=== PATIENT | male | born 1995 | race African-American/Black ===

== ENCOUNTER 2023-04-13 02:51 | Emergency (ER) | payer SELFPAY ==
[~2023-04-13] VITALS: Ht 177.8 cm; Wt 86.4 kg
[2023-04-13] MEDS ORDERED: IPRATROPIUM BROM 0.5 MG/2.5ML INH SOL NEB ONE (04:00)
[2023-04-13] MEDS ORDERED: ALBUTEROL SULF 2.5 MG/0.5ML(0.5%) NEB SOLN NEB ONE (04:00)
[2023-04-13] MEDS ORDERED: ALBUTEROL MEDNEB 2.5 mg/3ml NEB ONE (04:20)
[2023-04-13 08:12] VITALS: BP 144/85; PULSE 60; RESP 16; TEMP 98.4; O2SAT 95
== END 2023-04-13 08:44 | disposition left against medical advice (07) ==
LOC: ER 02:55
DX: J45.901 Unspecified asthma with (acute) exacerbation (principal); Z53.21 Procedure and treatment not carried out due to patient leaving prior to being seen by health care provider
CPT/HCPCS: 94640; 99281; J7644

== ENCOUNTER 2023-04-14 02:25 | Emergency (ER) | payer SELFPAY ==
[~2023-04-14] VITALS: Ht 175.3 cm; Wt 90.0 kg
[2023-04-14 02:42] VITALS: BP 148/99
[2023-04-14 02:46] VITALS: PULSE 57
[2023-04-14 04:30] VITALS: RESP 16; O2SAT 98
== END 2023-04-14 04:33 | disposition home or self-care (01) ==
LOC: ER 02:25 → EDBD 02:25 → ER 04:33
DX: T69.9XXA Effect of reduced temperature, unspecified, initial encounter (principal); J45.909 Unspecified asthma, uncomplicated; Z59.00 Homelessness unspecified
CPT/HCPCS: 93005

== ENCOUNTER 2023-04-17 01:24 | Emergency (ER) | payer SELFPAY ==
[~2023-04-17] VITALS: Ht 177.8 cm; Wt 86.0 kg
[2023-04-17] MEDS ORDERED: ALBUTEROL SULF 2.5 MG/0.5ML(0.5%) NEB SOLN NEB ONE (02:15)
[2023-04-17] MEDS ORDERED: DexAMETHasone SOD PHOS 10MG/1ML VIAL INJ IM ONE (02:15)
[2023-04-17] MEDS ORDERED: IPRATROPIUM BROM 0.5 MG/2.5ML INH SOL NEB ONE (02:15)
[2023-04-17] MEDS ORDERED: ALBUTEROL MEDNEB 2.5 mg/3ml NEB ONE (02:17)
[2023-04-17] MEDS ORDERED: BUDE2SUS3 IN (02:18)
[2023-04-17] MEDS ORDERED: ALBUAER3 IN (02:18)
[2023-04-17] MEDS ORDERED: PRED20TA2 PO (02:18)
[2023-04-17 05:01] VITALS: BP 134/77; PULSE 61; RESP 18; TEMP 98.5; O2SAT 96
[2023-04-18] MEDS ORDERED: BUDE2SUS3 IN (07:16)
== END 2023-04-17 05:13 | disposition home or self-care (01) ==
LOC: ER 01:24
DX: J45.909 Unspecified asthma, uncomplicated (principal); Z76.0 Encounter for issue of repeat prescription
CPT/HCPCS: 94640; 99283; J7644

== ENCOUNTER 2023-04-18 06:23 | Emergency (ER) | payer SELFPAY ==
[~2023-04-18] VITALS: Ht 177.8 cm; Wt 92.8 kg
[~2023-04-18 06:23] MED LIST: ALBUAER3 IN; BUDE2SUS3 IN; PRED20TA2 PO
[2023-04-18 07:01] VITALS: BP 122/75; PULSE 64; RESP 16; TEMP 98; O2SAT 96
[2023-04-18] MEDS ORDERED: BUDE2SUS3 IN (07:16)
[2023-04-19] MEDS ORDERED: IBUP-1454 PO (04:12)
[2023-04-19] MEDS ORDERED: CYCL-611 PO (04:12)
== END 2023-04-18 07:30 | disposition home or self-care (01) ==
LOC: ER 06:23
DX: Z76.0 Encounter for issue of repeat prescription (principal)

== ENCOUNTER 2023-04-19 01:22 | Emergency (ER) | payer SELFPAY ==
[~2023-04-19] VITALS: Ht 177.8 cm; Wt 92.0 kg
[2023-04-19 02:29] VITALS: BP 118/78; PULSE 86; RESP 18; TEMP 97.2; O2SAT 96
[2023-04-19] MEDS ORDERED: DexAMETHasone SOD PHOS 10MG/1ML VIAL INJ IM ONE (04:00)
[2023-04-19] MEDS ORDERED: HYDROcodone-ACET 5/325MG TAB PO ONE (04:00)
[2023-04-19] MEDS ORDERED: IBUP-1454 PO (04:12)
[2023-04-19] MEDS ORDERED: CYCL-611 PO (04:12)
== END 2023-04-19 05:25 | disposition home or self-care (01) ==
LOC: ER 01:22
DX: M51.36 Other intervertebral disc degeneration, lumbar region (principal); M54.59 Other low back pain; J45.909 Unspecified asthma, uncomplicated; Z79.899 Other long term (current) drug therapy
CPT/HCPCS: 72100; 72131; 99284; J1100

== ENCOUNTER 2023-04-20 01:48 | Emergency (ER) | payer SELFPAY ==
[~2023-04-20] VITALS: Ht 177.8 cm; Wt 92.2 kg
[~2023-04-20 01:48] MED LIST changes: +CYCL-611 PO; +IBUP-1454 PO
[2023-04-20 03:24] VITALS: BP 125/79; PULSE 68; RESP 16; O2SAT 98
== END 2023-04-20 03:26 | disposition home or self-care (01) ==
LOC: ER 01:48
DX: G25.3 Myoclonus (principal); J45.909 Unspecified asthma, uncomplicated; Z79.899 Other long term (current) drug therapy

== ENCOUNTER 2023-04-22 17:26 | Emergency (ER) | payer SELFPAY ==
[~2023-04-22] VITALS: Ht 177.8 cm; Wt 86.4 kg
[2023-04-22] MEDS ORDERED: IPRATROPIUM BROM 0.5 MG/2.5ML INH SOL NEB ONE (18:30)
[2023-04-22] MEDS ORDERED: ALBUTEROL SULF 2.5 MG/0.5ML(0.5%) NEB SOLN NEB ONE (18:30)
[2023-04-22] MEDS ORDERED: methylPREDNISolone SOD SUCC 125 MG/2 ML VL IM ONE (18:30)
[2023-04-22] MEDS ORDERED: ALBUTEROL MEDNEB 2.5 mg/3ml NEB ONE (18:34)
[2023-04-22] MEDS ORDERED: methylPREDNISolone SOD SUCC 125 MG/2 ML VL IV ONE (20:15)
[2023-04-22 21:12] LABS: Basophils # (auto) 0.1 10 ^3/uL (0-0.2); Basophils % (auto) 0.8 % (0.0-2.0); Eosinophils # (auto) 0.4 10 ^3/uL (0-0.8); Eosinophils % (auto) 4.8 % (0.0-7.0); Hematocrit 49.5 % (41.0-53.0); Hemoglobin 16.5 g/dL (13.5-17.5); Lymphocytes # (auto) 1.3 10 ^3/uL (0.4-5.4); Lymphocytes % (auto) 15.7 % (10.0-50.0); Mean Corpuscular Hemoglobin 29.9 pg (28.0-32.0); Mean Corpuscular Hgb Conc. 33.3 g/dL (32.0-36.0); Mean Corpuscular Volume 89.8 fL (80.0-100.0); Monocytes # (auto) 0.8 10 ^3/uL (0-1.3); Monocytes % (auto) 9.8 % (0.0-12.0); Neutrophils # (auto) 5.7 10 ^3/uL (1.6-8.6); Neutrophils % (auto) 68.9 % (37.0-80.0); Nucleated Red Blood Cells % 0.1 %; Red Blood Cells 5.51 10^6/uL (4.5-5.90); Red Cell Distribution Width 13.5 % (11.8-14.3); White Blood Cell 8.3 10^3/uL (4.4-10.8)
[2023-04-22 21:45] LABS: Alanine Aminotransferase 18 U/L (7-40); Alkaline Phosphatase 68 U/L (46-116); Anion Gap 10 (5-15); Aspartate Aminotransferase 15 U/L (13-40); BUN/Creatinine Ratio 6.1 (10.0-20.0); Blood Urea Nitrogen 7 mg/dL (9-23); Calcium 9.5 mg/dL (8.5-10.1); Carbon Dioxide 24 mmol/L (20-30); Chloride 106 mmol/L (98-107); Glucose 132 mg/dL (74-106); Potassium 3.5 mmol/L (3.5-5.1); Sodium 140 mmol/L (136-145)
[2023-04-22 21:46] LABS: Albumin 4.7 g/dL (3.2-4.8); Bilirubin, Total 0.4 mg/dL (0.2-1.0); Total Protein 7.3 g/dL (5.7-8.2)
[2023-04-23 00:10] VITALS: BP 102/62; RESP 18; O2SAT 97
[2023-04-23] MEDS ORDERED: ALBUAER3 IN (00:15)
[2023-04-23] MEDS ORDERED: AZITTAB PO (00:15)
[2023-04-23] MEDS ORDERED: MONT10TA23 PO (00:15)
[2023-04-23] MEDS ORDERED: PRED20TA2 PO ×2 (00:15→12:11)
[2023-04-23 00:22] VITALS: PULSE 107
== END 2023-04-23 00:36 | disposition home or self-care (01) ==
LOC: EDBD 17:26 → ER 17:26
DX: R07.89 Other chest pain (principal); J45.909 Unspecified asthma, uncomplicated
CPT/HCPCS: 36415; 71045; 80053; 83880; 84484; 85025; 93005; 94640; 96374; 99285; J2930; J7644

== ENCOUNTER 2023-04-23 10:59 | Emergency (ER) | payer SELFPAY ==
[~2023-04-23] VITALS: Ht 177.8 cm; Wt 88.3 kg
[2023-04-23 11:02] VITALS: BP 122/73; PULSE 85; TEMP 98
[2023-04-23 11:15] VITALS: RESP 16; O2SAT 95
[2023-04-23] MEDS ORDERED: PRED20TA2 PO (12:11)
[2023-04-23] MEDS ORDERED: methylPREDNISolone SOD SUCC 125 MG/2 ML VL IM ONE (12:15)
== END 2023-04-23 12:19 | disposition home or self-care (01) ==
LOC: ER 10:59
DX: J45.909 Unspecified asthma, uncomplicated (principal)
CPT/HCPCS: 96372; 99283; J2930

== ENCOUNTER → 2023-04-23 | Emergency (ER) | payer SELFPAY ==
[~2023-04-23] VITALS: Ht 175.3 cm; Wt 84.0 kg
[~2023-04-23] MED LIST changes: +AZITTAB PO; +MONT10TA23 PO
[2023-04-23 02:31] VITALS: BP 136/72; PULSE 88; RESP 22; O2SAT 97
== END | disposition left against medical advice (07) ==
LOC: EDUNIT# 02:13 → EDBD 02:18 → ER 02:18
DX: J45.909 Unspecified asthma, uncomplicated (principal); Z53.21 Procedure and treatment not carried out due to patient leaving prior to being seen by health care provider

== ENCOUNTER 2023-04-26 23:43 | Emergency (ER) | payer SELFPAY ==
[~2023-04-26] VITALS: Ht 177.8 cm; Wt 86.0 kg
[2023-04-27] MEDS ORDERED: IPRATROPIUM BROM 0.5 MG/2.5ML INH SOL NEB ONE (00:30)
[2023-04-27] MEDS ORDERED: ALBUTEROL SULF 2.5 MG/0.5ML(0.5%) NEB SOLN NEB ONE (00:30)
[2023-04-27] MEDS ORDERED: ALBUTEROL MEDNEB 2.5 mg/3ml NEB ONE (01:12)
[2023-04-27 04:58] VITALS: BP 123/72; PULSE 95; RESP 18; TEMP 98; O2SAT 96
[2023-04-27] MEDS ORDERED: PRED20TA2 PO (05:25)
[2023-04-27] MEDS ORDERED: ALBUAER3 IN (05:25)
[2023-04-27] MEDS ORDERED: DexAMETHasone SOD PHOS 10MG/1ML VIAL INJ IM ONE (05:30)
== END 2023-04-27 05:38 | disposition home or self-care (01) ==
LOC: ER 23:43
DX: J45.901 Unspecified asthma with (acute) exacerbation (principal); Z59.00 Homelessness unspecified
CPT/HCPCS: 94640; 99283; J1100; J7644

== ENCOUNTER 2023-04-27 14:01 | Emergency (ER) | payer SELFPAY ==
[~2023-04-27] VITALS: Ht 177.8 cm; Wt 92.1 kg
[2023-04-27 14:20] VITALS: BP 111/63; PULSE 97; RESP 18; O2SAT 100
[2023-04-27 15:48] LABS: Urine WBC None Seen /hpf (0 - 3)
[2023-04-27 16:23] LABS: Urine Amorphous Crystal MOD /hpf (None Seen); Urine Bacteria NONE SEEN /hpf (None Seen); Urine Blood Negative /uL (Negative); Urine Clarity HAZY (Clear); Urine Color Yellow (Yellow); Urine Mucus FEW (None Seen); Urine Protein, UAD TRACE (Negative); Urine Specific Gravity 1.033 (1.001-1.035); Urine pH 7.5 (5.0-8.0)
== END 2023-04-27 20:09 | disposition left against medical advice (07) ==
LOC: ER 14:01
DX: R11.0 Nausea (principal); Z53.21 Procedure and treatment not carried out due to patient leaving prior to being seen by health care provider
CPT/HCPCS: 74176; 81001

== ENCOUNTER 2023-04-28 17:42 | Emergency (ER) | payer SELFPAY ==
[~2023-04-28] VITALS: Ht 177.8 cm; Wt 91.4 kg
[2023-04-28 18:22] VITALS: BP 127/83; PULSE 79; RESP 18; O2SAT 98
[2023-04-28] MEDS ORDERED: ONDANSETRON HCL 4 MG/2 ML VIAL IV ONE (19:30)
[2023-04-28] MEDS ORDERED: SODIUM CHLORIDE 0.9% 1,000 ML IV ONE (19:30)
[2023-04-28 20:32] LABS: Basophils # (auto) 0.1 10 ^3/uL (0-0.2); Basophils % (auto) 1.5 % (0.0-2.0); Eosinophils # (auto) 0.5 10 ^3/uL (0-0.8); Eosinophils % (auto) 6.3 % (0.0-7.0); Hematocrit 47.8 % (41.0-53.0); Lymphocytes # (auto) 4.2 10 ^3/uL (0.4-5.4); Lymphocytes % (auto) 49.9 % (10.0-50.0); Mean Corpuscular Hemoglobin 29.8 pg (28.0-32.0); Mean Corpuscular Hgb Conc. 33.5 g/dL (32.0-36.0); Mean Corpuscular Volume 88.8 fL (80.0-100.0); Monocytes # (auto) 0.7 10 ^3/uL (0-1.3); Monocytes % (auto) 7.9 % (0.0-12.0); Neutrophils # (auto) 2.9 10 ^3/uL (1.6-8.6); Neutrophils % (auto) 34.4 % (37.0-80.0); Nucleated Red Blood Cells % 0.1 %; Red Blood Cells 5.38 10^6/uL (4.5-5.90); White Blood Cell 8.3 10^3/uL (4.4-10.8)
[2023-04-28 20:47] LABS: Alanine Aminotransferase 17 U/L (7-40); Albumin 4.4 g/dL (3.2-4.8); Alkaline Phosphatase 73 U/L (46-116); Anion Gap 6 (5-15); Aspartate Aminotransferase 14 U/L (13-40); BUN/Creatinine Ratio 8.9 (10.0-20.0); Bilirubin, Total 0.3 mg/dL (0.2-1.0); Blood Urea Nitrogen 9 mg/dL (9-23); Calcium 9.1 mg/dL (8.5-10.1); Carbon Dioxide 28 mmol/L (20-30); Chloride 107 mmol/L (98-107); Glucose 102 mg/dL (74-106); Potassium 3.5 mmol/L (3.5-5.1); Sodium 141 mmol/L (136-145); Total Protein 6.6 g/dL (5.7-8.2)
== END 2023-04-28 23:23 | disposition left against medical advice (07) ==
LOC: ER 17:42
DX: T69.9XXA Effect of reduced temperature, unspecified, initial encounter (principal); R11.2 Nausea with vomiting, unspecified; J45.909 Unspecified asthma, uncomplicated; X58.XXXA Exposure to other specified factors, initial encounter; Y93.89 Activity, other specified; Y92.89 Other specified places as the place of occurrence of the external cause; Y99.8 Other external cause status
CPT/HCPCS: 36415; 80053; 85025

== ENCOUNTER 2023-05-05 00:48 | Emergency (ER) | payer SELFPAY ==
[~2023-05-05] VITALS: Ht 177.8 cm; Wt 94.7 kg
[2023-05-05 01:04] VITALS: BP 134/79; PULSE 70; RESP 16; TEMP 97.9
[2023-05-05] MEDS ORDERED: diphenhdrAMINE HCL 25 MG CAP PO ONE (03:00)
[2023-05-05] MEDS ORDERED: ONDANSETRON ODT 4 MG TAB PO ONE (03:00)
[2023-05-05 05:42] VITALS: O2SAT 97
== END 2023-05-05 05:57 | disposition home or self-care (01) ==
LOC: ER 00:48
DX: T78.40XA Allergy, unspecified, initial encounter (principal); R11.2 Nausea with vomiting, unspecified; J45.909 Unspecified asthma, uncomplicated; Z59.00 Homelessness unspecified; X58.XXXA Exposure to other specified factors, initial encounter
CPT/HCPCS: 99283; Q0162

== ENCOUNTER 2023-05-09 21:01 | Emergency (ER) | payer SELFPAY | END 2023-05-09 22:00 | disposition left against medical advice (07) | LOC: ER 21:01 | DX: R05.9 Cough, unspecified (principal); Z53.21 Procedure and treatment not carried out due to patient leaving prior to being seen by health care provider ==

== ENCOUNTER 2023-05-13 22:40 | Emergency (ER) | payer SELFPAY ==
[~2023-05-13] VITALS: Ht 177.8 cm; Wt 86.4 kg
[2023-05-13 23:05] VITALS: BP 113/71; PULSE 79; RESP 17; O2SAT 98
[2023-05-13] MEDS ORDERED: ALBUTEROL MEDNEB 2.5 mg/3ml NEB NEB ONE (23:15)
[2023-05-13] MEDS ORDERED: IPRATROPIUM BROM 0.5 MG/2.5ML INH SOL NEB ONE (23:15)
[2023-05-15] MEDS ORDERED: PRED20TA2 PO (00:28)
[2023-05-15] MEDS ORDERED: AMOX875T4 PO (00:28)
[2023-05-15] MEDS ORDERED: ZOFR4T PO (00:28)
== END 2023-05-14 01:13 | disposition left against medical advice (07) ==
LOC: ER 22:40
DX: J45.901 Unspecified asthma with (acute) exacerbation (principal); Z53.21 Procedure and treatment not carried out due to patient leaving prior to being seen by health care provider
CPT/HCPCS: 99281; J7644

== ENCOUNTER 2023-05-14 20:51 | Emergency (ER) | payer SELFPAY ==
[~2023-05-14] VITALS: Ht 177.8 cm; Wt 85.0 kg
[2023-05-14 20:57] VITALS: BP 123/81; RESP 16; O2SAT 100
[2023-05-15] MEDS ORDERED: PRED20TA2 PO (00:28)
[2023-05-15] MEDS ORDERED: AMOX875T4 PO (00:28)
[2023-05-15] MEDS ORDERED: ZOFR4T PO (00:28)
[2023-05-15] MEDS ORDERED: methylPREDNISolone SOD SUCC 125 MG/2 ML VL IM ONE (00:30)
[2023-05-15 01:24] LABS: COVID19 ANTIGEN SOFIA FIA NEGATIVE (NEGATIVE); Rapid Influenza A Negative (Negative); Rapid Influenza B Negative (Negative)
[2023-05-15 02:08] VITALS: PULSE 67
== END 2023-05-15 01:12 | disposition home or self-care (01) ==
LOC: ER 20:51 → EDBD 20:51 → ER 05-15 01:12
DX: J06.9 Acute upper respiratory infection, unspecified (principal); J45.909 Unspecified asthma, uncomplicated; Z79.899 Other long term (current) drug therapy; Z20.822 Contact with and (suspected) exposure to COVID-19
CPT/HCPCS: 36415; 71045; 87426; 87804; 93005

== ENCOUNTER 2023-05-24 17:53 | Emergency (ER) | payer SELFPAY ==
[~2023-05-24] VITALS: Ht 177.8 cm; Wt 86.3 kg
[~2023-05-24 17:53] MED LIST changes: +AMOX875T4 PO; +ZOFR4T PO
[2023-05-24 19:06] VITALS: BP 134/78; PULSE 86; RESP 18; TEMP 98.2; O2SAT 99
[2023-05-24] MEDS ORDERED: ACETAMINOPHEN 500 MG TAB PO ONE (19:45)
== END 2023-05-24 21:04 | disposition home or self-care (01) ==
LOC: ER 17:53 → EDBD 17:53 → ER 21:01
DX: M79.604 Pain in right leg (principal); M79.605 Pain in left leg; J45.909 Unspecified asthma, uncomplicated; Z79.899 Other long term (current) drug therapy

== ENCOUNTER 2023-05-25 14:13 | Emergency (ER) | payer SELFPAY ==
[~2023-05-25] VITALS: Ht 177.8 cm; Wt 85.0 kg
[2023-05-25 14:30] VITALS: BP 110/71; PULSE 97; RESP 20; O2SAT 96
[2023-05-25] MEDS ORDERED: SODIUM CHLORIDE 0.9% 1,000 ML IVB ONE (15:15)
[2023-05-25 16:04] LABS: Basophils # (auto) 0.1 10 ^3/uL (0-0.2); Basophils % (auto) 1.2 % (0.0-2.0); Eosinophils # (auto) 0.2 10 ^3/uL (0-0.8); Eosinophils % (auto) 3.3 % (0.0-7.0); Hematocrit 44.5 % (41.0-53.0); Hemoglobin 15.1 g/dL (13.5-17.5); Lymphocytes # (auto) 1.8 10 ^3/uL (0.4-5.4); Mean Corpuscular Hgb Conc. 33.9 g/dL (32.0-36.0); Mean Corpuscular Volume 88.4 fL (80.0-100.0); Monocytes % (auto) 13.5 % (0.0-12.0); Neutrophils # (auto) 4.2 10 ^3/uL (1.6-8.6); Nucleated Red Blood Cells % 0.1 %; Red Blood Cells 5.04 10^6/uL (4.5-5.90); Red Cell Distribution Width 13.5 % (11.8-14.3); White Blood Cell 7.4 10^3/uL (4.4-10.8)
[2023-05-25 16:16] LABS: Alanine Aminotransferase 15 U/L (7-40); Albumin 4.4 g/dL (3.2-4.8); Alkaline Phosphatase 68 U/L (46-116); Anion Gap 4 (5-15); Aspartate Aminotransferase 12 U/L (13-40); Bilirubin, Total 0.6 mg/dL (0.2-1.0); Blood Alcohol < 3.0 mg/dL (<10); Blood Urea Nitrogen 5 mg/dL (9-23); Calcium 9.7 mg/dL (8.5-10.1); Carbon Dioxide 29 mmol/L (20-30); Chloride 105 mmol/L (98-107); Glucose 87 mg/dL (74-106); Potassium 3.8 mmol/L (3.5-5.1); Sodium 138 mmol/L (136-145); Total Protein 6.8 g/dL (5.7-8.2)
== END 2023-05-25 21:41 | disposition home or self-care (01) ==
LOC: EDBD 14:13 → ER 14:13
DX: R53.1 Weakness (principal); R51.9 Headache, unspecified; J45.909 Unspecified asthma, uncomplicated; F20.9 Schizophrenia, unspecified; F17.210 Nicotine dependence, cigarettes, uncomplicated; Z79.899 Other long term (current) drug therapy
CPT/HCPCS: 36415; 70450; 80053; 80320; 85025

== ENCOUNTER 2023-05-28 22:17 | Emergency (ER) | payer SELFPAY ==
[~2023-05-28] VITALS: Ht 177.8 cm; Wt 84.1 kg
[2023-05-29] MEDS ORDERED: ACETAMINOPHEN 325 MG TAB PO ONE (01:15)
[2023-05-29 01:40] VITALS: PULSE 80; RESP 12; O2SAT 97
[2023-05-29 02:01] LABS: Basophils # (auto) 0.1 10 ^3/uL (0-0.2); Basophils % (auto) 1.2 % (0.0-2.0); Eosinophils # (auto) 0.2 10 ^3/uL (0-0.8); Eosinophils % (auto) 2.8 % (0.0-7.0); Hematocrit 44.2 % (41.0-53.0); Hemoglobin 14.7 g/dL (13.5-17.5); Lymphocytes # (auto) 3.2 10 ^3/uL (0.4-5.4); Lymphocytes % (auto) 38.5 % (10.0-50.0); Mean Corpuscular Hemoglobin 29.6 pg (28.0-32.0); Mean Corpuscular Hgb Conc. 33.3 g/dL (32.0-36.0); Mean Corpuscular Volume 88.7 fL (80.0-100.0); Monocytes # (auto) 0.9 10 ^3/uL (0-1.3); Monocytes % (auto) 10.6 % (0.0-12.0); Neutrophils # (auto) 3.9 10 ^3/uL (1.6-8.6); Neutrophils % (auto) 46.9 % (37.0-80.0); Nucleated Red Blood Cells % 0.1 %; Red Blood Cells 4.98 10^6/uL (4.5-5.90); Red Cell Distribution Width 13.6 % (11.8-14.3); White Blood Cell 8.3 10^3/uL (4.4-10.8)
[2023-05-29 02:21] LABS: Alanine Aminotransferase 12 U/L (7-40); Albumin 4.3 g/dL (3.2-4.8); Alkaline Phosphatase 66 U/L (46-116); Anion Gap 6 (5-15); Aspartate Aminotransferase 14 U/L (13-40); Blood Alcohol 4.3 mg/dL (<10); Calcium 8.9 mg/dL (8.7-10.4); Carbon Dioxide 27 mmol/L (20-30); Chloride 107 mmol/L (98-107); Glucose 95 mg/dL (74-106); Potassium 3.6 mmol/L (3.5-5.1); Sodium 140 mmol/L (136-145)
[2023-05-29 02:22] LABS: BUN/Creatinine Ratio 8.1 (10.0-20.0); Bilirubin, Total 0.5 mg/dL (0.2-1.0); Blood Urea Nitrogen 9 mg/dL (9-23); Total Protein 6.7 g/dL (5.7-8.2)
[2023-05-29 02:35] LABS: Amphetamine Screen, Urine Neg (NEGATIVE)
[2023-05-29 02:36] LABS: Barbiturate Scree,Urine Neg (NEGATIVE); Benzodiazephine Screen, Urine Neg (NEGATIVE); Cannabinoid Screen, Urine Pos (NEGATIVE); Cocaine Screen, Urine Neg (NEGATIVE); Opiate Scree,Urine Neg (NEGATIVE); Phencyclidine Screen, Urine Neg (NEGATIVE)
[2023-05-29 02:40] LABS: Urine Bacteria NONE SEEN /hpf (None Seen); Urine Blood Negative /uL (Negative); Urine Clarity Clear (Clear); Urine Color Yellow (Yellow); Urine Protein, UAD Negative (Negative); Urine Specific Gravity 1.019 (1.001-1.035); Urine Urobilinogen Normal (Negative); Urine WBC <1 /hpf (0 - 3)
[2023-05-29 03:30] VITALS: BP 130/72; PULSE 67; RESP 16; TEMP 97.8; O2SAT 97
[2023-05-29] MEDS ORDERED: ACET500T58 PO (03:31)
[2023-05-29] MEDS ORDERED: IBU600T PO (03:31)
[2023-05-29] MEDS ORDERED: HYDROcodone-ACET 7.5/325MG TAB PO ONE (03:45)
[2023-05-29] MEDS ORDERED: IBUPROFEN 600 MG TAB PO ONE (03:45)
[2023-05-29] MEDS ORDERED: ALBU108A5 IN (03:56)
== END 2023-05-29 03:50 | disposition home or self-care (01) ==
LOC: ER 22:17
DX: S09.90XA Unspecified injury of head, initial encounter (principal); J45.909 Unspecified asthma, uncomplicated; R07.89 Other chest pain; F17.210 Nicotine dependence, cigarettes, uncomplicated; Z59.00 Homelessness unspecified; Z79.1 Long term (current) use of non-steroidal anti-inflammatories (NSAID); Z79.2 Long term (current) use of antibiotics; Z79.899 Other long term (current) drug therapy; Y04.2XXA Assault by strike against or bumped into by another person, initial encounter; Y93.89 Activity, other specified; Y92.89 Other specified places as the place of occurrence of the external cause; Y99.8 Other external cause status
CPT/HCPCS: 36415; 70450; 70486; 71045; 80053; 80307; 80320; 81001; 85025

== ENCOUNTER 2023-06-19 16:14 | Emergency (ER) | payer SELFPAY ==
[~2023-06-19] VITALS: Ht 188 cm; Wt 110.0 kg
[~2023-06-19 16:14] MED LIST changes: +ACET500T58 PO; +ALBU108A5 IN; +IBU600T PO
[2023-06-19 16:25] VITALS: BP 146/85; PULSE 90; RESP 16; O2SAT 95
== END 2023-06-19 19:17 | disposition left against medical advice (07) ==
LOC: ER 16:14 → EDUNIT# 16:14 → EDBD 16:14 → ER 19:17
DX: J11.1 Influenza due to unidentified influenza virus with other respiratory manifestations (principal); Z53.21 Procedure and treatment not carried out due to patient leaving prior to being seen by health care provider

== ENCOUNTER 2023-06-25 10:41 | Emergency (ER) | payer SELFPAY ==
[~2023-06-25] VITALS: Ht 177.8 cm; Wt 97.1 kg
[2023-06-25 10:56] VITALS: BP 117/69; PULSE 102; RESP 18; TEMP 97.7; O2SAT 100
[2023-06-25] MEDS ORDERED: AZIT-43 PO (11:08)
[2023-06-25] MEDS ORDERED: PRED20TA2 PO (11:08)
[2023-06-25] MEDS ORDERED: ACET500T58 PO (11:08)
[2023-06-25] MEDS ORDERED: methylPREDNISolone SOD SUCC 125 MG/2 ML VL IM ONE (11:15)
[2023-06-25] MEDS ORDERED: cefTRIAXone SOD 1,000 MG VL IM ONE (11:15)
[2023-06-25 12:39] LABS: COVID19 ANTIGEN SOFIA FIA NEGATIVE (NEGATIVE)
[2023-06-25 12:40] LABS: Rapid Influenza A Negative (Negative); Rapid Influenza B Negative (Negative)
== END 2023-06-25 11:20 | disposition home or self-care (01) ==
LOC: ER 10:41
DX: J06.9 Acute upper respiratory infection, unspecified (principal); F17.210 Nicotine dependence, cigarettes, uncomplicated; F12.10 Cannabis abuse, uncomplicated; Z79.899 Other long term (current) drug therapy; Z20.822 Contact with and (suspected) exposure to COVID-19
CPT/HCPCS: 36415; 87426; 87804; 96372; 99284; J0696; J2930

== ENCOUNTER 2023-06-29 11:08 | Emergency (ER) | payer MEDICAID ==
[~2023-06-29] VITALS: Ht 177.8 cm; Wt 99.4 kg
[~2023-06-29 11:08] MED LIST changes: +AZIT-43 PO
[2023-06-29 11:44] VITALS: BP 141/75; PULSE 98; RESP 18; TEMP 97.6; O2SAT 96
== END 2023-06-29 13:18 | disposition left against medical advice (07) ==
LOC: ER 11:08
DX: J02.9 Acute pharyngitis, unspecified (principal); J45.909 Unspecified asthma, uncomplicated; F17.210 Nicotine dependence, cigarettes, uncomplicated; Z59.00 Homelessness unspecified; Z79.1 Long term (current) use of non-steroidal anti-inflammatories (NSAID); Z79.2 Long term (current) use of antibiotics; Z79.899 Other long term (current) drug therapy

== ENCOUNTER 2023-07-01 02:34 | Emergency (ER) | payer MEDICAID ==
[~2023-07-01] VITALS: Ht 177.8 cm; Wt 86.4 kg
[2023-07-01 04:04] LABS: Basophils # (auto) 0.1 10 ^3/uL (0-0.2); Basophils % (auto) 0.7 % (0.0-2.0); Eosinophils # (auto) 0.4 10 ^3/uL (0-0.8); Eosinophils % (auto) 5.6 % (0.0-7.0); Hematocrit 44.5 % (41.0-53.0); Hemoglobin 14.9 g/dL (13.5-17.5); Lymphocytes # (auto) 3.4 10 ^3/uL (0.4-5.4); Lymphocytes % (auto) 45.8 % (10.0-50.0); Mean Corpuscular Hemoglobin 29.9 pg (28.0-32.0); Mean Corpuscular Hgb Conc. 33.5 g/dL (32.0-36.0); Mean Corpuscular Volume 89.2 fL (80.0-100.0); Monocytes # (auto) 0.6 10 ^3/uL (0-1.3); Neutrophils % (auto) 39.9 % (37.0-80.0); Nucleated Red Blood Cells % 0.1 %; Red Blood Cells 4.99 10^6/uL (4.5-5.90); Red Cell Distribution Width 13.8 % (11.8-14.3); White Blood Cell 7.4 10^3/uL (4.4-10.8)
[2023-07-01 04:27] VITALS: BP 138/72; PULSE 89; RESP 18; TEMP 97.5; O2SAT 97
== END 2023-07-01 05:12 | disposition home or self-care (01) ==
LOC: ER 02:34
DX: R22.43 Localized swelling, mass and lump, lower limb, bilateral (principal); J45.909 Unspecified asthma, uncomplicated; F20.9 Schizophrenia, unspecified; F17.210 Nicotine dependence, cigarettes, uncomplicated; F12.10 Cannabis abuse, uncomplicated; F15.10 Other stimulant abuse, uncomplicated; Z59.00 Homelessness unspecified
CPT/HCPCS: 36415; 83880; 85025

== ENCOUNTER 2023-07-07 02:50 | Emergency (ER) | payer MEDICAID ==
[~2023-07-07] VITALS: Ht 182.9 cm; Wt 90.0 kg
[2023-07-07 06:59] VITALS: BP 161/94; PULSE 90; RESP 20; TEMP 98; O2SAT 98
== END 2023-07-07 04:36 | disposition home or self-care (01) ==
LOC: ER 02:50 → EDBD 02:50 → ER 04:36
DX: M79.605 Pain in left leg (principal); M79.604 Pain in right leg; R60.0 Localized edema; J45.909 Unspecified asthma, uncomplicated; F17.210 Nicotine dependence, cigarettes, uncomplicated; Z79.2 Long term (current) use of antibiotics; Z79.899 Other long term (current) drug therapy

== ENCOUNTER 2023-07-10 00:05 | Emergency (ER) | payer MEDICAID ==
[~2023-07-10] VITALS: Ht 177.8 cm; Wt 86.4 kg
[2023-07-10 00:20] VITALS: BP 124/78; PULSE 80; RESP 18; TEMP 98.1; O2SAT 97
[2023-07-10] MEDS ORDERED: BUDE1AER4 IN (02:47)
[2023-07-11] MEDS ORDERED: ACET500T58 PO (19:16)
== END 2023-07-10 02:56 | disposition home or self-care (01) ==
LOC: ER 00:05
DX: J45.901 Unspecified asthma with (acute) exacerbation (principal); F17.210 Nicotine dependence, cigarettes, uncomplicated; Z76.0 Encounter for issue of repeat prescription; Z59.00 Homelessness unspecified

== ENCOUNTER 2023-07-11 18:41 | Emergency (ER) | payer MEDICAID ==
[~2023-07-11] VITALS: Ht 177.8 cm; Wt 113.3 kg
[~2023-07-11 18:41] MED LIST changes: +BUDE1AER4 IN
[2023-07-11] MEDS ORDERED: ACETAMINOPHEN 500 MG TAB PO ONE (19:00)
[2023-07-11 19:07] VITALS: BP 111/63; PULSE 92; RESP 16; O2SAT 98
[2023-07-11] MEDS ORDERED: ACET500T58 PO (19:16)
[2023-07-12] MEDS ORDERED: BENZ100C97 PO (23:28)
[2023-07-12] MEDS ORDERED: ALBUAER3 IN (23:28)
[2023-07-12] MEDS ORDERED: PRED20TA2 PO (23:28)
== END 2023-07-11 19:57 | disposition home or self-care (01) ==
LOC: EDUNIT# 18:41 → ER 18:41 → EDBD 18:41 → ER 19:57
DX: S00.83XA Contusion of other part of head, initial encounter (principal); J45.909 Unspecified asthma, uncomplicated; F17.210 Nicotine dependence, cigarettes, uncomplicated; Z59.00 Homelessness unspecified; Z79.1 Long term (current) use of non-steroidal anti-inflammatories (NSAID); Z79.2 Long term (current) use of antibiotics; Z79.899 Other long term (current) drug therapy; W01.198A Fall on same level from slipping, tripping and stumbling with subsequent striking against other object, initial encounter; Y93.89 Activity, other specified; Y92.89 Other specified places as the place of occurrence of the external cause; Y99.8 Other external cause status

== ENCOUNTER 2023-07-12 22:08 | Emergency (ER) | payer MEDICAID ==
[~2023-07-12] VITALS: Ht 177.8 cm; Wt 86.0 kg
[2023-07-12 22:08] VITALS: BP 118/70; PULSE 78
[2023-07-12] MEDS ORDERED: PRED20TA2 PO (23:28)
[2023-07-12] MEDS ORDERED: BENZ100C97 PO (23:28)
[2023-07-12] MEDS ORDERED: ALBUAER3 IN (23:28)
[2023-07-12] MEDS ORDERED: IPRATROPIUM BROM 0.5 MG/2.5ML INH SOL NEB ONE (23:30)
[2023-07-12] MEDS ORDERED: ALBUTEROL SULF 2.5 MG/0.5ML(0.5%) NEB SOLN NEB ONE (23:30)
[2023-07-12] MEDS ORDERED: DexAMETHasone SOD PHOS 10MG/1ML VIAL INJ IM ONE (23:30)
[2023-07-12 23:52] VITALS: RESP 18; O2SAT 97
== END 2023-07-13 00:29 | disposition home or self-care (01) ==
LOC: ER 22:08
DX: J45.901 Unspecified asthma with (acute) exacerbation (principal); F17.210 Nicotine dependence, cigarettes, uncomplicated; F12.10 Cannabis abuse, uncomplicated; F15.10 Other stimulant abuse, uncomplicated; Z59.00 Homelessness unspecified
CPT/HCPCS: 94640; 99283; J7644

== ENCOUNTER 2023-07-15 02:53 | Emergency (ER) | payer MEDICAID ==
[~2023-07-15] VITALS: Ht 177.8 cm; Wt 88.6 kg
[~2023-07-15 02:53] MED LIST changes: +BENZ100C97 PO
[2023-07-15 03:13] VITALS: BP 122/75; PULSE 84; RESP 17; O2SAT 100
== END 2023-07-15 07:48 | disposition left against medical advice (07) ==
LOC: ER 02:53
DX: J45.909 Unspecified asthma, uncomplicated (principal); F17.210 Nicotine dependence, cigarettes, uncomplicated; F12.10 Cannabis abuse, uncomplicated; F15.10 Other stimulant abuse, uncomplicated; Z76.0 Encounter for issue of repeat prescription; Z59.00 Homelessness unspecified

== ENCOUNTER 2023-07-15 22:36 | Emergency (ER) | payer MEDICAID ==
[~2023-07-15] VITALS: Ht 177.8 cm; Wt 88.0 kg
[2023-07-15 22:36] VITALS: BP 124/82; PULSE 74; RESP 20; O2SAT 100
[2023-07-16] MEDS ORDERED: ACETAMINOPHEN 325 MG TAB PO ONE (03:00)
== END 2023-07-16 03:20 | disposition home or self-care (01) ==
LOC: ER 22:36 → EDBD 22:36 → ER 07-16 03:19
DX: R51.9 Headache, unspecified (principal); J45.909 Unspecified asthma, uncomplicated; F17.210 Nicotine dependence, cigarettes, uncomplicated; Z59.00 Homelessness unspecified

== ENCOUNTER 2023-07-17 23:27 | Emergency (ER) | payer MEDICAID ==
[~2023-07-17] VITALS: Ht 177.8 cm; Wt 104.6 kg
[2023-07-17 23:37] VITALS: BP 124/76; PULSE 87; TEMP 98.1
[2023-07-18] MEDS ORDERED: ALBU108A5 IN (00:09)
[2023-07-18] MEDS ORDERED: BENZ200C64 PO (00:09)
[2023-07-18] MEDS ORDERED: PRED20TA2 PO (00:09)
[2023-07-18] MEDS ORDERED: IPRATROPIUM BROM 0.5 MG/2.5ML INH SOL NEB ONE (00:15)
[2023-07-18] MEDS ORDERED: predniSONE 20 MG TAB PO ONE (00:15)
[2023-07-18] MEDS ORDERED: ALBUTEROL SULF 2.5 MG/0.5ML(0.5%) NEB SOLN NEB ONE (00:15)
[2023-07-18 00:24] VITALS: RESP 16; O2SAT 95
[2023-07-18] MEDS ORDERED: ALBUTEROL SULF HFA 90MCG INH 200DOSE IN SCH (06:00)
== END 2023-07-18 01:16 | disposition home or self-care (01) ==
LOC: ER 23:27
DX: J45.901 Unspecified asthma with (acute) exacerbation (principal); F12.10 Cannabis abuse, uncomplicated; F15.10 Other stimulant abuse, uncomplicated; F17.210 Nicotine dependence, cigarettes, uncomplicated; Z59.00 Homelessness unspecified
CPT/HCPCS: 94640; 99283; J7512; J7644

== ENCOUNTER 2023-07-26 21:54 | Emergency (ER) | payer MEDICAID ==
[~2023-07-26] VITALS: Ht 177.8 cm; Wt 106.7 kg
[~2023-07-26 21:54] MED LIST changes: +BENZ200C64 PO
[2023-07-26 22:16] VITALS: BP 132/61; PULSE 80; RESP 17; O2SAT 98
== END 2023-07-27 03:18 | disposition left against medical advice (07) ==
LOC: ER 21:54
DX: J45.909 Unspecified asthma, uncomplicated (principal); Z53.21 Procedure and treatment not carried out due to patient leaving prior to being seen by health care provider

== ENCOUNTER 2023-08-01 22:05 | Emergency (ER) | payer MEDICAID ==
[~2023-08-01] VITALS: Ht 177.8 cm; Wt 107.9 kg
[2023-08-02 02:05] VITALS: BP 130/62; PULSE 82; RESP 18; TEMP 98.2; O2SAT 96
[2023-08-02] MEDS: IBUPROFEN 600 MG TAB PO ONE (02:10)
== END 2023-08-02 02:11 | disposition home or self-care (01) ==
LOC: ER 22:05
DX: M79.662 Pain in left lower leg (principal); M79.661 Pain in right lower leg; F17.210 Nicotine dependence, cigarettes, uncomplicated; F15.10 Other stimulant abuse, uncomplicated; F12.10 Cannabis abuse, uncomplicated; J45.909 Unspecified asthma, uncomplicated; Z59.00 Homelessness unspecified

== ENCOUNTER 2023-08-11 01:15 | Emergency (ER) | payer MEDICAID ==
[~2023-08-11] VITALS: Ht 177.8 cm; Wt 90.0 kg
[2023-08-11 02:04] VITALS: BP 125/70; PULSE 81; RESP 16; TEMP 97.2
[2023-08-11 05:27] VITALS: O2SAT 94
[2023-08-11] MEDS: ACETAMINOPHEN 325 MG TAB PO ONE (05:50)
== END 2023-08-11 06:06 | disposition home or self-care (01) ==
LOC: ER 01:15
DX: M79.605 Pain in left leg (principal); M79.604 Pain in right leg; J45.909 Unspecified asthma, uncomplicated; F17.210 Nicotine dependence, cigarettes, uncomplicated; Z59.00 Homelessness unspecified; Z79.2 Long term (current) use of antibiotics; Z79.899 Other long term (current) drug therapy

== ENCOUNTER 2023-08-20 01:23 | Emergency (ER) | payer MEDICAID ==
[~2023-08-20] VITALS: Ht 177.8 cm; Wt 110.0 kg
[2023-08-20 01:37] VITALS: BP 130/69; PULSE 89; RESP 18; TEMP 97.9
[2023-08-20 06:08] VITALS: O2SAT 96
[2023-08-21] MEDS ORDERED: ALBUAER3 IN (02:31)
== END 2023-08-20 06:22 | disposition home or self-care (01) ==
LOC: ER 01:23
DX: R60.0 Localized edema (principal); J45.909 Unspecified asthma, uncomplicated; F17.210 Nicotine dependence, cigarettes, uncomplicated; F12.10 Cannabis abuse, uncomplicated; Z59.00 Homelessness unspecified

== ENCOUNTER 2023-08-21 00:58 | Emergency (ER) | payer SELFPAY ==
[~2023-08-21] VITALS: Ht 177.8 cm; Wt 91.0 kg
[2023-08-21] MEDS ORDERED: ALBUAER3 IN (02:31)
[2023-08-21 02:33] VITALS: BP 132/74; PULSE 88; RESP 20; TEMP 98.4; O2SAT 96
[2023-08-21] MEDS: IPRATROPIUM BROM 0.5 MG/2.5ML INH SOL NEB ONE (02:45)
[2023-08-21] MEDS: ALBUTEROL SULF 2.5 MG/0.5ML(0.5%) NEB SOLN NEB ONE (02:46)
[2023-08-21] MEDS: DexAMETHasone SOD PHOS 10MG/1ML VIAL INJ IM ONE (03:11)
== END 2023-08-21 02:28 | disposition home or self-care (01) ==
LOC: ER 00:58
DX: J45.909 Unspecified asthma, uncomplicated (principal); F20.9 Schizophrenia, unspecified; F17.210 Nicotine dependence, cigarettes, uncomplicated; F15.90 Other stimulant use, unspecified, uncomplicated; Z76.0 Encounter for issue of repeat prescription
CPT/HCPCS: 94640; 96372; 99283; J1100; J7644

== ENCOUNTER 2023-09-16 05:46 | Emergency (ER) | payer SELFPAY ==
[2023-09-21] MEDS ORDERED: FURO1TAB31 PO (00:23)
== END 2023-09-16 06:45 | disposition left against medical advice (07) ==
LOC: ER 05:46
DX: J45.909 Unspecified asthma, uncomplicated (principal); Z53.21 Procedure and treatment not carried out due to patient leaving prior to being seen by health care provider

== ENCOUNTER 2023-09-22 06:27 | Emergency (ER) | payer SELFPAY ==
[~2023-09-22] VITALS: Ht 177.8 cm; Wt 110.0 kg
[~2023-09-22 06:27] MED LIST changes: +FURO1TAB31 PO
[2023-09-22 07:50] VITALS: BP 119/62; PULSE 68; RESP 18; O2SAT 95
[2023-09-22] MEDS ORDERED: ACET500T58 PO (08:11)
[2023-09-22] MEDS ORDERED: CYCL-837 PO (08:11)
[2023-09-22] MEDS ORDERED: IBUP1TAB5 PO (08:11)
[2023-09-22 08:22] VITALS: TEMP 98.6
[2023-09-22] MEDS: IBUPROFEN 600 MG TAB PO ONE (08:22)
[2023-09-22] MEDS: ACETAMINOPHEN 500 MG TAB PO ONE (08:22)
== END 2023-09-22 08:56 ==
LOC: ER 06:27
DX: S39.012A Strain of muscle, fascia and tendon of lower back, initial encounter (principal); J45.909 Unspecified asthma, uncomplicated; F20.9 Schizophrenia, unspecified; F17.210 Nicotine dependence, cigarettes, uncomplicated; F15.90 Other stimulant use, unspecified, uncomplicated; Z59.00 Homelessness unspecified; Z79.899 Other long term (current) drug therapy; X58.XXXA Exposure to other specified factors, initial encounter; Y93.89 Activity, other specified; Y92.89 Other specified places as the place of occurrence of the external cause; Y99.8 Other external cause status

== ENCOUNTER 2023-09-29 01:15 | Emergency (ER) | payer SELFPAY ==
[~2023-09-29] VITALS: Ht 177.8 cm; Wt 98.0 kg
[~2023-09-29 01:15] MED LIST changes: +CYCL-837 PO; +IBUP1TAB5 PO
[2023-09-29 03:04] VITALS: BP 135/72; PULSE 80; RESP 14; O2SAT 93
== END 2023-09-29 05:01 | disposition home or self-care (01) ==
LOC: ER 01:15
DX: R60.0 Localized edema (principal); M79.604 Pain in right leg; M79.605 Pain in left leg; J45.909 Unspecified asthma, uncomplicated; F20.9 Schizophrenia, unspecified; F17.210 Nicotine dependence, cigarettes, uncomplicated; F15.90 Other stimulant use, unspecified, uncomplicated; Z79.899 Other long term (current) drug therapy

== ENCOUNTER 2023-09-29 21:27 | Emergency (ER) | payer SELFPAY ==
[~2023-09-29] VITALS: Ht 177.8 cm; Wt 95.0 kg
[2023-09-29 21:36] VITALS: BP 131/75; RESP 16; O2SAT 97
[2023-09-29 21:37] VITALS: PULSE 87
== END 2023-09-30 05:05 | disposition left against medical advice (07) ==
LOC: EDBD 21:27 → ER 21:27
DX: R07.89 Other chest pain (principal); Z53.21 Procedure and treatment not carried out due to patient leaving prior to being seen by health care provider
CPT/HCPCS: 93005

== ENCOUNTER 2023-09-30 07:15 | Emergency (ER) | payer SELFPAY ==
[~2023-09-30] VITALS: Ht 177.8 cm; Wt 109.0 kg
[2023-09-30 07:22] VITALS: BP 124/76; RESP 18; O2SAT 98
[2023-09-30 07:25] VITALS: PULSE 66
[2023-09-30 07:34] LABS: Basophils # (auto) 0 10 ^3/uL (0-0.2); Basophils % (auto) 0.6 % (0.0-2.0); Eosinophils # (auto) 0.4 10 ^3/uL (0-0.8); Eosinophils % (auto) 6.2 % (0.0-7.0); Hematocrit 48.5 % (41.0-53.0); Hemoglobin 16.1 g/dL (13.5-17.5); Lymphocytes # (auto) 2.7 10 ^3/uL (0.4-5.4); Lymphocytes % (auto) 48.5 % (10.0-50.0); Mean Corpuscular Hemoglobin 29.2 pg (28.0-32.0); Mean Corpuscular Hgb Conc. 33.3 g/dL (32.0-36.0); Mean Corpuscular Volume 87.8 fL (80.0-100.0); Monocytes # (auto) 0.7 10 ^3/uL (0-1.3); Monocytes % (auto) 11.9 % (0.0-12.0); Neutrophils # (auto) 1.9 10 ^3/uL (1.6-8.6); Neutrophils % (auto) 32.8 % (37.0-80.0); Nucleated Red Blood Cells % 0.3 %; Red Blood Cells 5.52 10^6/uL (4.5-5.90); Red Cell Distribution Width 13.5 % (11.8-14.3); White Blood Cell 5.7 10^3/uL (4.4-10.8)
[2023-09-30 07:49] LABS: Alanine Aminotransferase 21 U/L (7-40); Albumin 4.4 g/dL (3.2-4.8); Alkaline Phosphatase 81 U/L (46-116); Anion Gap 1 (5-15); Aspartate Aminotransferase 20 U/L (13-40); BUN/Creatinine Ratio 7.1 (10.0-20.0); Bilirubin, Total 0.4 mg/dL (0.2-1.0); Blood Urea Nitrogen 8 mg/dL (9-23); Calcium 9.2 mg/dL (8.5-10.1); Carbon Dioxide 30 mmol/L (20-30); Chloride 106 mmol/L (98-107); Glucose 105 mg/dL (74-106); Potassium 4.4 mmol/L (3.5-5.1); Sodium 137 mmol/L (136-145); Total Protein 6.7 g/dL (5.7-8.2)
== END 2023-09-30 11:29 | disposition left against medical advice (07) ==
LOC: ER 07:15
DX: R07.89 Other chest pain (principal); Z53.21 Procedure and treatment not carried out due to patient leaving prior to being seen by health care provider
CPT/HCPCS: 36415; 80053; 84484; 85025; 93005

== ENCOUNTER 2023-10-04 20:01 | Emergency (ER) | payer SELFPAY ==
[~2023-10-04] VITALS: Ht 177.8 cm; Wt 100.0 kg
[2023-10-04 20:07] VITALS: BP 111/71; PULSE 84; RESP 16; O2SAT 96
[2023-10-04 21:09] LABS: Urine Bacteria FEW /hpf (None Seen); Urine Blood Negative /uL (Negative); Urine Clarity Clear (Clear); Urine Color Light-Yellow (Yellow); Urine Protein, UAD Negative (Negative); Urine Specific Gravity 1.018 (1.001-1.035); Urine Urobilinogen Normal (Negative); Urine WBC <1 /hpf (0 - 3)
== END 2023-10-04 23:46 | disposition left against medical advice (07) ==
LOC: EDSEX 20:01 → EDBD 20:01 → ER 20:01
DX: R60.0 Localized edema (principal); F20.9 Schizophrenia, unspecified; J45.909 Unspecified asthma, uncomplicated; F17.210 Nicotine dependence, cigarettes, uncomplicated; F15.90 Other stimulant use, unspecified, uncomplicated; Z59.00 Homelessness unspecified; Z79.899 Other long term (current) drug therapy
CPT/HCPCS: 81001; 83880; 84484; 93005

== ENCOUNTER 2023-10-07 22:57 | Emergency (ER) | payer SELFPAY ==
[~2023-10-07] VITALS: Ht 180.3 cm; Wt 95.3 kg
[2023-10-07 23:06] VITALS: BP 129/82; PULSE 80; RESP 16; O2SAT 97
== END 2023-10-08 01:52 | disposition left against medical advice (07) ==
LOC: ER 22:57 → EDUNIT# 22:57 → EDBD 22:57 → ER 10-08 01:52
DX: R30.9 Painful micturition, unspecified (principal); R10.30 Lower abdominal pain, unspecified; Z53.21 Procedure and treatment not carried out due to patient leaving prior to being seen by health care provider

== ENCOUNTER 2023-10-08 12:39 | Emergency (ER) | payer SELFPAY ==
[~2023-10-08] VITALS: Ht 177.8 cm; Wt 113.0 kg
[2023-10-08 13:00] VITALS: BP 123/68; PULSE 84; RESP 16; O2SAT 96
== END 2023-10-08 14:50 | disposition left against medical advice (07) ==
LOC: ER 12:39
DX: M79.89 Other specified soft tissue disorders (principal); Z53.21 Procedure and treatment not carried out due to patient leaving prior to being seen by health care provider

== ENCOUNTER 2023-10-12 07:59 | Emergency (ER) | payer SELFPAY ==
[~2023-10-12] VITALS: Ht 177.8 cm; Wt 113.1 kg
[2023-10-12 08:14] VITALS: BP 113/71; PULSE 81; RESP 12; O2SAT 98
[2023-10-12] MEDS ORDERED: FUROSEMIDE 40 MG/4 ML VIAL IV ONE (09:15)
[2023-10-12] MEDS ORDERED: methylPREDNISolone SOD SUCC 125 MG/2 ML VL IV ONE (10:00)
== END 2023-10-12 10:24 | disposition left against medical advice (07) ==
LOC: ER 07:59
DX: R60.0 Localized edema (principal); J45.909 Unspecified asthma, uncomplicated; F17.210 Nicotine dependence, cigarettes, uncomplicated; Z59.00 Homelessness unspecified; Z79.1 Long term (current) use of non-steroidal anti-inflammatories (NSAID); Z79.2 Long term (current) use of antibiotics; Z79.899 Other long term (current) drug therapy

== ENCOUNTER 2023-10-14 09:01 | Emergency (ER) | payer SELFPAY | END 2023-10-14 09:28 | disposition left against medical advice (07) | LOC: ER 09:01 | DX: R06.02 Shortness of breath (principal); Z53.21 Procedure and treatment not carried out due to patient leaving prior to being seen by health care provider ==

== ENCOUNTER 2023-10-15 05:20 | Emergency (ER) | payer SELFPAY | END 2023-10-15 06:34 | disposition left against medical advice (07) | LOC: ER 05:20 | DX: M79.605 Pain in left leg (principal); M79.604 Pain in right leg; R22.43 Localized swelling, mass and lump, lower limb, bilateral; Z53.21 Procedure and treatment not carried out due to patient leaving prior to being seen by health care provider ==

== ENCOUNTER 2023-10-15 21:42 | Emergency (ER) | payer SELFPAY ==
[~2023-10-15] VITALS: Ht 177.8 cm; Wt 81.8 kg
[2023-10-15 22:30] VITALS: BP 120/66; PULSE 84; RESP 18; O2SAT 98
[2023-10-16] MEDS ORDERED: HYDROcodone-ACET 5/325MG TAB PO ONE (01:15)
== END 2023-10-16 02:47 | disposition home or self-care (01) ==
LOC: ER 21:42
DX: M25.532 Pain in left wrist (principal); M25.531 Pain in right wrist; J45.909 Unspecified asthma, uncomplicated; F17.210 Nicotine dependence, cigarettes, uncomplicated; Z59.00 Homelessness unspecified; Z79.2 Long term (current) use of antibiotics; Z79.1 Long term (current) use of non-steroidal anti-inflammatories (NSAID); Z79.899 Other long term (current) drug therapy

== ENCOUNTER 2023-10-27 20:50 | Emergency (ER) | payer MEDICAID ==
[~2023-10-27] VITALS: Ht 182.9 cm; Wt 100.0 kg
[2023-10-27 21:00] VITALS: BP 102/66; PULSE 87; RESP 15; O2SAT 100
== END 2023-10-27 23:00 | disposition home or self-care (01) ==
LOC: EDBD 20:50 → ER 20:50
DX: M79.604 Pain in right leg (principal); M79.605 Pain in left leg; J45.909 Unspecified asthma, uncomplicated; F20.9 Schizophrenia, unspecified; F17.210 Nicotine dependence, cigarettes, uncomplicated; F15.90 Other stimulant use, unspecified, uncomplicated; Z59.00 Homelessness unspecified; Z79.899 Other long term (current) drug therapy

== ENCOUNTER 2023-11-07 20:59 | Emergency (ER) | payer MEDICAID ==
[~2023-11-07] VITALS: Ht 177.8 cm; Wt 90.0 kg
[2023-11-08] MEDS: DexAMETHasone SOD PHOS 10MG/1ML VIAL INJ IM ONE (00:15)
[2023-11-08] MEDS: IPRATROPIUM BROM 0.5 MG/2.5ML INH SOL NEB ONE (00:22)
[2023-11-08] MEDS: ALBUTEROL SULF 2.5 MG/0.5ML(0.5%) NEB SOLN NEB ONE (00:22)
[2023-11-08 03:02] VITALS: BP 103/59; PULSE 77; RESP 18; TEMP 98.5; O2SAT 95
== END 2023-11-08 03:47 | disposition home or self-care (01) ==
LOC: ER 20:59
DX: J45.901 Unspecified asthma with (acute) exacerbation (principal); F17.210 Nicotine dependence, cigarettes, uncomplicated; F12.10 Cannabis abuse, uncomplicated; Z59.00 Homelessness unspecified
CPT/HCPCS: 94640; 96372; 99283; J1100; J7644

== ENCOUNTER 2023-11-09 21:55 | Emergency (ER) | payer MEDICAID ==
[~2023-11-09] VITALS: Ht 177.8 cm; Wt 86.2 kg
[2023-11-10] MEDS: ALBUTEROL SULF 2.5 MG/0.5ML(0.5%) NEB SOLN NEB ONE (01:54)
[2023-11-10] MEDS: IPRATROPIUM BROM 0.5 MG/2.5ML INH SOL NEB ONE (01:54)
[2023-11-10 04:22] VITALS: BP 123/63; PULSE 77; TEMP 98.6
[2023-11-10 04:26] VITALS: RESP 20; O2SAT 97
[2023-11-10] MEDS: DexAMETHasone SOD PHOS 10MG/1ML VIAL INJ IM ONE (04:46)
== END 2023-11-10 04:48 | disposition home or self-care (01) ==
LOC: ER 21:55 → EDBD 21:55 → ER 11-10 04:48
DX: J45.901 Unspecified asthma with (acute) exacerbation (principal); F20.9 Schizophrenia, unspecified; F17.210 Nicotine dependence, cigarettes, uncomplicated; F15.90 Other stimulant use, unspecified, uncomplicated; Z59.00 Homelessness unspecified
CPT/HCPCS: 93005; 94640; 96372; 99283; J1100; J7644

== ENCOUNTER 2023-11-11 22:33 | Emergency (ER) | payer MEDICAID ==
[~2023-11-11] VITALS: Ht 182.9 cm; Wt 86.6 kg
[2023-11-12 05:03] VITALS: BP 132/75; PULSE 79; RESP 16; TEMP 98; O2SAT 99
== END 2023-11-12 06:11 | disposition home or self-care (01) ==
LOC: ER 22:33 → EDBD 22:33 → ER 11-12 06:11
DX: Z00.00 Encounter for general adult medical examination without abnormal findings (principal); F17.210 Nicotine dependence, cigarettes, uncomplicated; F12.10 Cannabis abuse, uncomplicated; J45.909 Unspecified asthma, uncomplicated; Z59.00 Homelessness unspecified

== ENCOUNTER 2023-11-15 19:31 | Emergency (ER) | payer MEDICAID ==
[~2023-11-15] VITALS: Ht 152.4 cm; Wt 90.0 kg
[2023-11-15 19:54] VITALS: BP 148/80; PULSE 94; RESP 16; O2SAT 96
== END 2023-11-15 20:01 | disposition left against medical advice (07) ==
LOC: ER 19:31 → EDBD 19:31 → ER 20:01
DX: M79.671 Pain in right foot (principal); M79.672 Pain in left foot; M79.89 Other specified soft tissue disorders; Z53.21 Procedure and treatment not carried out due to patient leaving prior to being seen by health care provider

== ENCOUNTER 2023-11-16 11:09 | Emergency (ER) | payer MEDICAID ==
[~2023-11-16] VITALS: Ht 177.8 cm; Wt 113.9 kg
[2023-11-16 13:23] VITALS: BP 122/72; PULSE 103; RESP 12; TEMP 97.8; O2SAT 97
[2023-11-16] MEDS: IBUPROFEN 600 MG TAB PO ONE (14:29)
== END 2023-11-16 15:28 | disposition home or self-care (01) ==
LOC: ER 11:09
DX: M54.59 Other low back pain (principal); L02.33 Carbuncle of buttock; J45.909 Unspecified asthma, uncomplicated; F17.210 Nicotine dependence, cigarettes, uncomplicated; F12.10 Cannabis abuse, uncomplicated; Z59.00 Homelessness unspecified

== ENCOUNTER 2023-11-21 20:50 | Emergency (ER) | payer MEDICAID ==
[~2023-11-21] VITALS: Ht 177.8 cm; Wt 86.4 kg
[2023-11-21 21:34] LABS: Basophils # (auto) 0.1 10 ^3/uL (0-0.2); Basophils % (auto) 1.2 % (0.0-2.0); Eosinophils # (auto) 0.4 10 ^3/uL (0-0.8); Eosinophils % (auto) 4.9 % (0.0-7.0); Hematocrit 42.1 % (41.0-53.0); Hemoglobin 14.3 g/dL (13.5-17.5); Lymphocytes # (auto) 2.7 10 ^3/uL (0.4-5.4); Lymphocytes % (auto) 31.6 % (10.0-50.0); Mean Corpuscular Hemoglobin 29.8 pg (28.0-32.0); Mean Corpuscular Hgb Conc. 33.9 g/dL (32.0-36.0); Monocytes % (auto) 11.2 % (0.0-12.0); Neutrophils # (auto) 4.4 10 ^3/uL (1.6-8.6); Neutrophils % (auto) 51.1 % (37.0-80.0); Red Blood Cells 4.79 10^6/uL (4.5-5.90); Red Cell Distribution Width 14.1 % (11.8-14.3); White Blood Cell 8.6 10^3/uL (4.4-10.8)
[2023-11-21 21:47] LABS: Alanine Aminotransferase 19 U/L (7-40); Albumin 4.1 g/dL (3.2-4.8); Alkaline Phosphatase 72 U/L (46-116); Anion Gap 5 (5-15); Aspartate Aminotransferase 11 U/L (13-40); BUN/Creatinine Ratio 10.7 (10.0-20.0); Bilirubin, Total 0.4 mg/dL (0.2-1.0); Blood Urea Nitrogen 12 mg/dL (9-23); Calcium 9.6 mg/dL (8.5-10.1); Carbon Dioxide 28 mmol/L (20-30); Chloride 108 mmol/L (98-107); Glucose 132 mg/dL (74-106); Potassium 3.5 mmol/L (3.5-5.1); Sodium 141 mmol/L (136-145)
[2023-11-21 21:48] LABS: Total Protein 6.5 g/dL (5.7-8.2)
[2023-11-22 04:05] VITALS: BP 124/86; PULSE 76; RESP 16; TEMP 98.2; O2SAT 99
== END 2023-11-22 04:28 | disposition home or self-care (01) ==
LOC: EDBD 20:50 → EDUNIT# 20:50 → ER 20:50
DX: I89.0 Lymphedema, not elsewhere classified (principal); F17.210 Nicotine dependence, cigarettes, uncomplicated; F12.10 Cannabis abuse, uncomplicated; J45.909 Unspecified asthma, uncomplicated; F20.9 Schizophrenia, unspecified; Z59.00 Homelessness unspecified; Z79.899 Other long term (current) drug therapy
CPT/HCPCS: 36415; 80053; 85025

== ENCOUNTER 2023-11-25 00:21 | Emergency (ER) | payer MEDICAID ==
[~2023-11-25] VITALS: Ht 175.3 cm; Wt 100.0 kg
[2023-11-25 02:14] VITALS: BP 126/75; PULSE 95; RESP 26; TEMP 98.3; O2SAT 96
== END 2023-11-25 06:00 | disposition home or self-care (01) ==
LOC: ER 00:21
DX: G89.29 Other chronic pain (principal); M79.662 Pain in left lower leg; M79.661 Pain in right lower leg; J45.909 Unspecified asthma, uncomplicated; F20.9 Schizophrenia, unspecified; F17.210 Nicotine dependence, cigarettes, uncomplicated; F12.10 Cannabis abuse, uncomplicated; Z59.00 Homelessness unspecified; Z79.899 Other long term (current) drug therapy

== ENCOUNTER 2023-11-27 21:38 | Emergency (ER) | payer MEDICAID ==
[~2023-11-27] VITALS: Ht 180.3 cm; Wt 100.0 kg
[2023-11-27 21:58] VITALS: BP 132/78; PULSE 94; RESP 18; O2SAT 96
[2023-12-02] MEDS ORDERED: ACET500T58 PO (04:44)
== END 2023-11-28 03:29 | disposition left against medical advice (07) ==
LOC: EDBD 21:38 → ER 21:38
DX: R22.40 Localized swelling, mass and lump, unspecified lower limb (principal); Z53.21 Procedure and treatment not carried out due to patient leaving prior to being seen by health care provider

== ENCOUNTER 2023-12-04 21:45 | Emergency (ER) | payer MEDICAID ==
[~2023-12-04] VITALS: Ht 170.2 cm; Wt 90.0 kg
[2023-12-04 22:19] VITALS: BP 120/77; PULSE 82; RESP 16; O2SAT 97
== END 2023-12-05 00:23 | disposition left against medical advice (07) ==
LOC: EDBD 21:45 → EDUNIT# 21:45 → ER 21:45
DX: M79.89 Other specified soft tissue disorders (principal); Z53.21 Procedure and treatment not carried out due to patient leaving prior to being seen by health care provider; Z59.00 Homelessness unspecified

== ENCOUNTER 2023-12-06 20:51 | Emergency (ER) | payer MEDICAID ==
[~2023-12-06] VITALS: Ht 180.3 cm; Wt 131.5 kg
[2023-12-06 20:56] VITALS: BP 126/74; PULSE 84; RESP 18; O2SAT 97
[2023-12-06] MEDS ORDERED: HYDROcodone-ACET 5/325MG TAB PO ONE (23:00)
== END 2023-12-06 23:28 | disposition admitted as inpatient to this hospital (09) ==
LOC: ER 20:51 → EDBD 20:51 → ER 23:28
DX: R60.0 Localized edema (principal); M79.605 Pain in left leg; M79.604 Pain in right leg; J45.909 Unspecified asthma, uncomplicated; F20.9 Schizophrenia, unspecified; F17.210 Nicotine dependence, cigarettes, uncomplicated; Z79.899 Other long term (current) drug therapy; Z59.00 Homelessness unspecified

== ENCOUNTER 2023-12-10 22:10 | Emergency (ER) | payer MEDICAID ==
[~2023-12-10] VITALS: Ht 175.3 cm; Wt 100.0 kg
[2023-12-10 23:15] VITALS: BP 142/80; PULSE 90; RESP 18; O2SAT 98
== END 2023-12-11 03:44 | disposition left against medical advice (07) ==
LOC: EDUNIT# 22:10 → EDBD 22:10 → ER 22:10
DX: M79.605 Pain in left leg (principal); M79.604 Pain in right leg; Z53.21 Procedure and treatment not carried out due to patient leaving prior to being seen by health care provider

== ENCOUNTER 2024-06-03 00:15 | Emergency (ER) | payer MEDICAID ==
[~2024-06-03] VITALS: Ht 175.3 cm; Wt 139.2 kg
[2024-06-03 00:25] VITALS: BP 126/79
[2024-06-03 01:01] VITALS: PULSE 112; RESP 18; O2SAT 96
[2024-06-03] MEDS ORDERED: PRED20TA2 PO (01:47)
[2024-06-03] MEDS ORDERED: BUDE1AER4 IN (01:47)
--- NOTE | 2024-06-03 01:52 | ED.PDOC ---
SOB-HPI HPI Comments THIS IS A 29-YEAR-OLD MALE HOMELESS PATIENT PRESENTS TO THE ED FOR MEDICATION REFILL. PATIENT STATES HE HAS BEEN WITHOUT HIS SYMBICORT FOR A FEW DAYS CURRENTLY DEVELOPED A DRY NONPRODUCTIVE COUGH. HE IS REQUESTING A REFILL OF HIS SYMBICORT AND A 5 DAY PREDNISONE BURST WHICH HE HAS DONE IN THE PAST WHICH HAS HELPED. DENIES CHEST PAIN, DIFFICULTY BREATHING, SHORTNESS OF BREATH, OR FEVERS. Chief Complaint: Cough Time Seen by MD: 00:31 Primary Care Provider: UNKNOWN Reviewed notes: Nurses Notes, Medications, Allergies Mode of Arrival: Ambulatory Past Medical History PAST MEDICAL HISTORY: Asthma, Schizophrenia Surgical History: Denies all surgeries Family History Family History: Unknown Social History Smoker: Cigarettes, Less Than 1 Pack/Day Alcohol: Denies ETOH Use Drugs: Denies Drug Use Lives In: Homeless Constitutional: denies: chills, diaphoresis, fatigue, fever, malaise, sweats, weakness, others EENTM: denies: blurred vision, double vision, ear bleeding, ear discharge, ear drainage, ear pain, ear ringing, eye pain, eye redness, hearing loss, mouth pain, mouth swelling, nasal discharge, nose bleeding, nose congestion, nose pain, photophobia, tearing, throat pain, throat swelling, voice changes, others Respiratory: reports: cough; denies: hemoptysis, orthopnea, SOB at rest, shortness of breath, SOB with excertion, stridor, wheezing, others Cardiovascular: denies: chest pain, dizzy spells, diaphoresis, Dyspnea on exertion, edema, irregular heart beat, left arm pain, lightheadedness, palpitations, PND, syncope, others Gastrointestinal: denies: abdomen distended, abdominal pain, blood streaked bowels, constipated, diarrhea, dysphagia, difficulty swallowing, hematemesis, melena, nausea, poor appetite, poor fluid intake, rectal bleeding, rectal pain, vomiting, others Genitourinary: denies: burning, dysuria, flank pain, frequency, hematuria, incontinence, penile discharge, penile sore, pain, testicle pain, testicle swelling, urgency, others Neurological: denies: dizziness, fainting, headache, left sided numbness, left sided weakness, numbness, paresthesia, pre-existing deficit, right sided numbness, right sided weakness, seizure, speech problems, tingling, tremors, weakness, others Musculoskeletal: denies: back pain, gout, joint pain, joint swelling, muscle pain, muscle stiffness, neck pain, others Integumetry: denies: bruises, change in color, change in hair/nails, dryness, laceration, lesions, lumps, rash, wounds, others Allergic/Immunocompromised: denies: Difficulty Healing, Frequent Infections, Hives, Itching, others Hematologic/Lymphatic: denies: anemia, blood clots, easy bleeding, easy bruising, swollen glands, others Endocrine: denies: excessive hunger, excessive sweating, excessive thirst, excessive urination, flushing, intolerance to cold, intolerance to heat, u nexplained weight gain, unexplained weight loss, others Psychiatric: denies: anxiety, bipolar disorder, depression, hopeless, panic disorder, schizophrenia, sleepless, suicidal, others Physical Exam General Appearance: No Apparent Distress, Normal HEENT: Normal ENT Inspection, Pharynx Normal, TMs Normal Neck: Full Range of Motion, Non-Tender Respiratory: Chest Non-Tender, Lungs Clear, No Accessory Muscle Use, No Respiratory Distress, Normal Breath Sounds Cardiovascular: No Edema, No JVD, No Murmur, No Gallop, Normal Peripheral Pulses, Regular Rate/Rhythm Breast Exam: Deferred Gastrointestinal: No Organomegaly, Non Tender, No Pulsatile Mass, Normal Bowel Sounds, Soft Genitalia: Deferred Pelvic: Deferred Rectal: Deferred Extremities: Normal capillary refill, Normal inspection, Normal range of motion, Non-tender, No pedal edema Musculoskeletal : Apperance: Normal Neurologic: Alert, surfboard maker II-XII nml as Tested, No Motor Deficits, Normal Affect, Normal Mood, No Sensory Deficits Cerebellar Function: Normal Reflexes: Normal Skin: Dry, Normal Color, Warm Lymphatic: No Adenopathy Was a procedure done? Was a procedure done?: No Differential Dx Differential Diagnosis: Asthma X-Ray, Labs, Meds, VS Vital Signs Date Time Temp Pulse Resp B/P (MAP) Pulse Ox O2 Delivery O2 Flow Rate FiO2 06/03/24 01:01 112 18 96 Room Air 06/03/24 00:25 99.1 112 18 126/79 (95) 96 06/03/24 00:25 18 96 Room Air* 0 21 X-Ray, Labs, Meds, VS Comment PATIENT APPEARS TO BE IN NO DISTRESS PHYSICAL EXAM GROSSLY BENIGN. SENT REFILLS TO PATIENT'S PHARMACY FOR SYMBICORT AND PREDNISONE. ADVISED PATIENT TO MAKE AN APPOINTMENT WITH HIS PCP FOR RE-EVALUATION AND MEDICATION MANAGEMENT. ER RETURN PRECAUTIONS GIVEN PATIENT INDICATED UNDERSTANDING AGREES WITH DISCHARGE PLAN OF CARE. Time of 1ST Reevaluation: 01:47 Reevaluation 1ST: Improved Patient Education/Counseling: Diagnosis, Treatment, Prognosis, Need For Follow Up Family Education/Counseling: No Family Present Departure 1 Departure Time of Disposition: 01:52 Impression: Primary Impression: Encounter for medication refill Disposition: HOME / SELF CARE / HOMELESS Condition: Stable e-Prescriptions Budesonide-Formoterol Fumarate (Budesonide/Formoterol Fum 160-4.5 Mcg/Act) 1 Aer Aer 2 AER IN BID, #1 AER Prov: COLBY WELCH 06/03/24 Prednisone (Prednisone) 20 Mg Tab 1 TAB PO BID for 5 Days, #10 TAB Start tomorrow with food Prov: COLBY WELCH 06/03/24 Discharged With: Self Critical Care Note Critical Care Time?: No Stability Stability form required: No Heart Score Heart Score: Heart Score Response (Comments) Value History N/A 0 EKG N/A 0 Age <45 0 Risk Factors N/A 0 Troponin N/A 0 Total 0 COLBY WELCH Jun 03, 2024 01:52
== END 2024-06-03 02:04 | disposition home or self-care (01) ==
LOC: ER 00:15
DX: J45.909 Unspecified asthma, uncomplicated (principal); F20.9 Schizophrenia, unspecified; F17.210 Nicotine dependence, cigarettes, uncomplicated; Z76.0 Encounter for issue of repeat prescription; Z59.00 Homelessness unspecified

== ENCOUNTER 2024-09-15 20:41 | Emergency (ER) | payer MEDICAID, OTHER ==
[~2024-09-15] VITALS: Ht 175.3 cm; Wt 110.0 kg
--- NOTE | 2024-09-15 23:15 | ED.PDOC ---
Musculoskeletal HPI Comments PT BROUGHT IN BY EMS FOR CC OF BILATERAL LOWER EXT PAIN AND SWELLING X 2 HOURS. PT ALSO REPORTS BODY ACHES. PT IS HOMELESS AND REPORTS WALKING A LOT. DENIES CHEST PAIN, DIFFICULTY BREATHING, SHORTNESS OF BREATH. Chief Complaint: Lower Extremity Time Seen by MD: 20:54 Primary Care Provider: UNKNOWN Reviewed Notes: Nurses Notes, Medications, Allergies Allergies: Coded Allergies: NO KNOWN ALLERGIES (Unverified , 04/13/23) Home Meds Active Scripts Potassium Chloride (POTASSIUM CHLORIDE CR) 10 Meq Tb, 1 TAB PO DAILY for 14 Days, #14 TAB Prov:YURI,COLBY [facility] 09/16/24 Furosemide (Lasix) 20 Mg Tb, 1 TAB PO DAILY for 14 Days, #14 TAB Prov:COLBY WELCH [facility] 09/16/24 Budesonide-Formoterol Fumarate (Budesonide/Formoterol Fum 160-4.5 Mcg/Act) 1 Aer Aer, 2 AER IN BID, #1 AER Prov:COLBY WELCH [facility] 06/03/24 Prednisone (Prednisone) 20 Mg Tab, 1 TAB PO BID for 5 Days, #10 TAB Start tomorrow with food Prov:YURI,COLBY [facility] 06/03/24 Azithromycin (Azithromycin) 250 Mg Tab, 250 MG PO DAILY MDD 500 for 5 Days, #6 TAB 0 Refills 2 TABLETS ORALLY ON DAY ONE, THEN 1 TABLET ORALLY DAILY FOR 4 DAYS Prov:TYRONE GEORGES 12/02/23 Acetaminophen (Acetaminophen) 500 Mg Tab, 500 MG PO Q4HPRN, #30 TAB 0 Refills Prov:TYRONE GEORGES 12/02/23 Albuterol Sulfate (VENTOLIN MDI) 90 Mcg Ih, 90 MCG IN Q4HPRN PRN, #1 INH Prov:SHARYN IYER [facility] 09/26/23 Cyclobenzaprine Hcl (Cyclobenzaprine Hcl) 5 Mg Tab, 1 TAB PO QHSP PRN for 30 Days, #30 TAB 0 Refills Prov:BOBO MENDEZ NP 09/22/23 Acetaminophen (Acetaminophen) 500 Mg Tab, 500 MG PO QIDP for 14 Days, #56 TAB 0 Refills Prov:BOBO MENDEZ PATHOLOGIST 09/22/23 Ibuprofen Micronized (Ibuprofen) 600 Mg Tab, 600 MG PO TIDWMEALS for 30 Days, #90 TAB 0 Refills Prov:ANDREABOBO La PATHOLOGIST 09/22/23 Furosemide (Lasix) 40 Mg Tab, 40 MG PO DAILY for 7 Days, #7 TAB Prov:DAVID [place] [employer]ANCE INSPECT[employer] 09/21/23 Albuterol Sulfate (VENTOLIN MDI) 90 Mcg Ih, 2 PUFF IN Q4HPRN, #1 INH 0 Refills Prov:TYRONE GEORGES 09/08/23 Prednisone (Prednisone) 20 Mg Tab, 20 MG PO BID for 5 Days, #10 TAB 0 Refills Prov:TYRONE GEORGES PA 09/08/23 Albuterol Sulfate (VENTOLIN MDI) 90 Mcg Ih, 1 PUFF IN Q4HPRN PRN, #1 INH As needed for cough nasal congestion shortness of breath or wheeze Prov:AJ SWEET Q PATHOLOGIST 08/21/23 Albuterol Sulfate (Albuterol Sulfate Hfa) 108 Mcg/Act Aer, 1 PUFF IN Q4HPRN PRN, #1 AER As needed for cough nasal congestion shortness of breath wheezing Prov:AJ SWEET Q PATHOLOGIST 07/18/23 Benzonatate (Benzonatate) 200 Mg Cap, 1 CAP PO TID, #30 CAP as needed for cough Prov:AJ SWEET Q PATHOLOGIST 07/18/23 Prednisone (Prednisone) 20 Mg Tab, 1 TAB PO DAILY for 5 Days, #5 TAB start tomorrow with food Prov:AJ SWEET Q PATHOLOGIST 07/18/23 Benzonatate (Benzonatate) 100 Mg Cap, 1 CAP PO TID PRN, #30 CAP Prov:SHIREENBROOKLYNVANESSA SURVEILLANCE INSPECTOR 07/12/23 Albuterol Sulfate (VENTOLIN MDI) 90 Mcg Ih, 90 MCG IN Q4HPRN PRN, #1 INH two puff every 4hr prn wheezing. Prov:SHIREENBROOKLYNVANESSA SURVEILLANCE INSPECTOR 07/12/23 Prednisone (Prednisone) 20 Mg Tab, 60 MG PO DAILY for 5 Days, #15 TAB Prov:SHARYN IYER SURVEILLANCE INSPECTOR 07/12/23 Acetaminophen (Acetaminophen) 500 Mg Tab, 500 MG PO Q4HP PRN, #20 TAB Prov:TANJA COREA PAC 07/11/23 Acetaminophen (Acetaminophen) 500 Mg Tab, 500 MG PO Q6HPRN, #30 TAB 0 Refills Prov:TYRONE GEORGES 06/25/23 Prednisone (Prednisone) 20 Mg Tab, 20 MG PO BID for 5 Days, #10 TAB 0 Refills Prov:TYRONE GEORGES 06/25/23 Azithromycin (Azithromycin) 250 Mg Tab, 250 MG PO DAILY MDD 500 for 5 Days, #6 TAB 0 Refills 2 TABLETS ORALLY ON DAY ONE, THEN 1 TABLET ORALLY DAILY FOR 4 DAYS Prov:TYRONE GEORGES 06/25/23 Albuterol Sulfate (Albuterol Sulfate Hfa) 108 Mcg/Act Aer, 108 MCG IN TID, #1 AER Prov:CECILIA TADEO MD 05/29/23 Acetaminophen (Acetaminophen) 500 Mg Tab, 500 MG PO BID, #20 TAB Prov:CECILIA TADEO MD 05/29/23 Ibuprofen Micronized (MOTRIN TABLET) 600 Mg Tb, 600 MG PO TID PRN, #40 TAB *Black box warning-NSAIDS can increase risk of DE & hypertension, GI irritation, ulceration, bleed, perferation. Do not use post cardiac surgery. Use short duration/lowest effective dose. Prov:CECILIA TADEO MD 05/29/23 Ondansetron Odt 4MG Tab (ZOFRAN PO) 4 Mg Tb, 4 MG PO Q8HPRN, #14 TAB 0 Refills ODT TAB-DISSOLVE IN MOUTH, THEN SWALLOW Prov:TYRONE GEORGES 05/15/23 Prednisone (Prednisone) 20 Mg Tab, 20 MG PO BID for 5 Days, #10 TAB 0 Refills Prov:TYRONE GEORGES 05/15/23 Amoxicillin & Pot Clavulanate (Amoxicillin/Potassium Cla) 875 Mg Tab, 1 TAB PO BID for 7 Days, #14 TAB 0 Refills Prov:TYRONE GEORGES 05/15/23 Albuterol Sulfate (VENTOLIN MDI) 90 Mcg Ih, 2 PUFF IN QIDP, #1 INH 0 Refills Prov:TYRONE GEORGES 04/27/23 Prednisone (Prednisone) 20 Mg Tab, 20 MG PO BID for 5 Days, #10 TAB 0 Refills Prov:TYRONE GEORGES 04/27/23 Prednisone (Prednisone) 20 Mg Tab, 60 MG PO DAILY, #15 MG Prov:MANOJ FIELDS 04/23/23 Montelukast Sodium (Singulair) 10 Mg Tab, 1 TAB PO DAILY for 14 Days, #14 TAB Prov:AJ SWEET PATHOLOGIST 04/23/23 Albuterol Sulfate (VENTOLIN MDI) 90 Mcg Ih, 1 PUFF IN Q4HR, #1 INH as needed for cough nasal congestion shortness of breath or wheezing Prov:AJ SWEET PATHOLOGIST 04/23/23 Prednisone (Prednisone) 20 Mg Tab, 1 TAB PO BID for 5 Days, #10 TAB start tomorrow with food Prov:AJ SWEET PATHOLOGIST 04/23/23 Azithromycin (Zithromax Z-Brandon) 250 Mg Tab, 1 TAB PO DAILY for 5 Days, #6 TAB 2 tabs today then 1 tab start tomorrow for 4 days Prov:AJ SWEET PATHOLOGIST 04/23/23 Cyclobenzaprine HCl (Cyclobenzaprine Hydrochlo) 10 Mg Tab, 1 TAB PO Q8HR, #15 TAB As needed for muscle spasm Prov:AJ SWEET PATHOLOGIST 04/19/23 Ibuprofen (Ibuprofen) 600 Mg Tab, 1 TAB PO Q6HR, #20 TAB Prov:AJ SWEET PATHOLOGIST 04/19/23 Budesonide (Inhalation) (Budesonide) 1 Mg/2 Ml Cora, 1 MG IN BID, #2 ML Prov:MANOJ FIELDS 04/18/23 Albuterol Sulfate (VENTOLIN MDI) 90 Mcg Ih, 1 PUFF IN Q4HR, #1 INH As needed for shortness of breath or wheeze Prov:AJ SWEET PATHOLOGIST 04/17/23 Prednisone (Prednisone) 20 Mg Tab, 1 TAB PO DAILY for 5 Days, #5 TAB Start tomorrow with food Prov:AJ SWEET PATHOLOGIST 04/17/23 Mode of Arrival: Ambulatory Past Medical History PAST MEDICAL HISTORY: Asthma, Schizophrenia Surgical History: Denies all surgeries Family History Family History: Unknown Social History Smoker: Cigarettes, Less Than 1 Pack/Day Alcohol: Denies ETOH Use Drugs: Denies Drug Use Lives In: Homeless Constitutional: denies: chills, diaphoresis, fatigue, fever, malaise, sweats, weakness, others EENTM: denies: blurred vision, double vision, ear bleeding, ear discharge, ear drainage, ear pain, ear ringing, eye pain, eye redness, hearing loss, mouth pain, mouth swelling, nasal discharge, nose bleeding, nose congestion, nose pain, photophobia, tearing, throat pain, throat swelling, voice changes, others Respiratory: denies: cough, hemoptysis, orthopnea, SOB at rest, shortness of breath, SOB with excertion, stridor, wheezing, others Cardiovascular: reports: edema; denies: chest pain, dizzy spells, diaphoresis, Dyspnea on exertion, irregular heart beat, left arm pain, lightheadedness, palpitations, PND, syncope, others Gastrointestinal: denies: abdomen distended, abdominal pain, blood streaked bowels, constipated, diarrhea, dysphagia, difficulty swallowing, hematemesis, melena, nausea, poor appetite, poor fluid intake, rectal bleeding, rectal pain, vomiting, others Genitourinary: denies: burning, dysuria, flank pain, frequency, hematuria, incontinence, penile discharge, penile sore, pain, testicle pain, testicle swelling, urgency, others Neurological: denies: dizziness, fainting, headache, left sided numbness, left sided weakness, numbness, paresthesia, pre-existing deficit, right sided numbness, right sided weakness, seizure, speech problems, tingling, tremors, weakness, others Musculoskeletal: denies: back pain, gout, joint pain, joint swelling, muscle pain, muscle stiffness, neck pain, others Integumetry: denies: bruises, change in color, change in hair/nails, dryness, laceration, lesions, lumps, rash, wounds, others Allergic/Immunocompromised: denies: Difficulty Healing, Frequent Infections, Hives, Itching, others Hematologic/Lymphatic: denies: anemia, blood clots, easy bleeding, easy bruising, swollen glands, others Endocrine: denies: excessive hunger, excessive sweating, excessive thirst, excessive urination, flushing, intolerance to cold, intolerance to heat, unexplained weight gain, unexplained weight loss, others Psychiatric: denies: anxiety, bipolar disorder, depression, hopeless, panic disorder, schizophrenia, sleepless, suicidal, others Physical Exam General Appearance: No Apparent Distress, Normal HEENT: Pharynx Normal Neck: Full Range of Motion, Non-Tender Respiratory: Lungs Clear, No Accessory Muscle Use, No Respiratory Distress, Normal Breath Sounds Cardiovascular: No Edema, No JVD, No Murmur, No Gallop, Normal Peripheral Pulses, Regular Rate/Rhythm Breast Exam: Deferred Gastrointestinal: No Organomegaly, Non Tender, No Pulsatile Mass, Normal Bowel Sounds, Soft Genitalia: Deferred Pelvic: Deferred Rectal: Deferred Extremities: No calf tenderness, Normal capillary refill, Normal inspection, Normal range of motion, Non-tender, Pedal edema (2+ PITTING EDEMA BILATERAL LOWER EXTREMITIES NO NOTED ERYTHEMA WARMTH OR TENDERNESS PEDAL PULSES POSITIVE BILATERAL ULCERS OR OPEN WOUNDS OR LESIONS) Musculoskeletal : Apperance: Normal Neurologic: Alert, six horse hitch driver II-XII nml as Tested, No Motor Deficits, Normal Affect, Normal Mood, No Sensory Deficits Cerebellar Function: Normal Reflexes: Normal Skin: Dry, Normal Color, Warm Lymphatic: No Adenopathy Was a procedure done? Was a procedure done?: No Differential Diagnosis EXT Differential Diagnosis: Cellulitis, Deep Vein Thrombosis, Neurovascular injury X-Ray, Labs, Meds, VS Vital Signs Date Time Temp Pulse Resp B/P (MAP) Pulse Ox O2 Delivery O2 Flow Rate FiO2 09/16/24 01:03 90 20 97 Room Air* 0 21 09/16/24 01:03 99.0 90 20 140/88 (105) 97 99.0 09/15/24 20:41 97.8 95 16 126/81 (96) 99 97.8 Lab Test 09/15/24 23:34 Range/Units White Blood Count 7.4 4.4-10.8 10^3/uL Red Blood Count 4.98 4.5-5.90 10^6/uL Hemoglobin 14.6 13.5-17.5 g/dL Hematocrit 42.5 41.0-53.0 % Mean Corpuscular Volume 85.3 80.0-100.0 fL Mean Corpuscular Hemoglobin 29.4 28.0-32.0 pg Mean Corpuscular Hemoglobin Concent 34.4 32.0-36.0 g/dL Red Cell Distribution Width 14.4 H 11.8-14.3 % Platelet Count 169 140-450 10^3/uL Mean Platelet Volume 8.9 6.9-10.8 fL Neutrophils (%) (Auto) 44.2 37.0-80.0 % Lymphocytes (%) (Auto) 38.9 10.0-50.0 % Monocytes (%) (Auto) 9.6 0.0-12.0 % Eosinophils (%) (Auto) 5.4 0.0-7.0 % Basophils (%) (Auto) 1.9 0.0-2.0 % Neutrophils # (Auto) 3.3 1.6-8.6 10 ^3/uL Lymphocytes # (Auto) 2.9 0.4-5.4 10 ^3/uL Monocytes # (Auto) 0.7 0-1.3 10 ^3/uL Eosinophils # (Auto) 0.4 0-0.8 10 ^3/uL Basophils # (Auto) 0.1 0-0.2 10 ^3/uL Nucleated Red Blood Cells 0.2 % Sodium Level 141 136-145 mmol/L Potassium Level 3.8 3.5-5.1 mmol/L Chloride Level 108 H 98-107 mmol/L Carbon Dioxide Level 24 20-31 mmol/L Anion Gap 9 5-15 Blood Urea Nitrogen 15 9-23 mg/dL Creatinine 1.04 0.700-1.30 mg/dL Glomerular Filtration Rate Calc 98 >90 mL/min BUN/Creatinine Ratio 14.4 10.0-20.0 Serum Glucose 112 H 74-106 mg/dL Calcium Level 9.8 8.7-10.4 mg/dL Total Bilirubin 0.3 0.2-1.0 mg/dL Aspartate Amino Transferase (AST) 21 13-40 U/L Alanine Aminotransferase (ALT) 22 7-40 U/L Alkaline Phosphatase 74 46-116 U/L B-Type Natriuretic Peptide 1.10 0-100 pg/mL Total Protein 7.2 5.7-8.2 g/dL Albumin 4.7 3.2-4.8 g/dL X-Ray, Labs, Meds, VS Comment CBC CMP AND BNP WITHIN NORMAL LIMITS. LIKELY CHRONIC IN NATURE. SCRIPT LASIX 20 MG P.O. ONCE DAILY TIMES 14 DAYS ALONG WITH POTASSIUM 10 MEQ ONCE DAILY TIMES 14 DAYS. ADVISED PATIENT TO FOLLOW UP WITH HIS PCP IN 2-3 DAYS. ADVISED TO TAKE MEDICATIONS PRESCRIBED SIDE EFFECTS DISCUSSED. ADVISED HIM TO FOLLOW LOW-SODIUM CARDIAC DIET CONSIDER COMPRESSION STOCKINGS AND ELEVATE LOWER EXT REMITIES. ER RETURN PRECAUTIONS GIVEN PATIENT INDICATES UNDERSTANDING AND AGREES WITH DISCHARGE PLAN OF CARE Time of 1ST Reevaluation: 01:22 Reevaluation 1ST: Improved Patient Education/Counseling: Diagnosis, Treatment, Prognosis, Need For Follow Up Family Education/Counseling: No Family Present Departure 1 Departure Time of Disposition: 00:52 Impression: Primary Impression: Peripheral edema Disposition: HOME / SELF CARE / HOMELESS Condition: Stable e-Prescriptions Potassium Chloride (POTASSIUM CHLORIDE CR) 10 Meq Tb 1 TAB PO DAILY for 14 Days, #14 TAB Prov: COLBY WELCH 09/16/24 Furosemide (Lasix) 20 Mg Tb 1 TAB PO DAILY for 14 Days, #14 TAB Prov: COLBY WELCH 09/16/24 Discharged With: Self Critical Care Note Critical Care Time?: No Stability Stability form required: COLBY Johnson Sep 15, 2024 23:15
[2024-09-16 00:04] LABS: Basophils # (auto) 0.1 10 ^3/uL (0-0.2); Basophils % (auto) 1.9 % (0.0-2.0); Eosinophils # (auto) 0.4 10 ^3/uL (0-0.8); Eosinophils % (auto) 5.4 % (0.0-7.0); Hematocrit 42.5 % (41.0-53.0); Hemoglobin 14.6 g/dL (13.5-17.5); Lymphocytes # (auto) 2.9 10 ^3/uL (0.4-5.4); Lymphocytes % (auto) 38.9 % (10.0-50.0); Mean Corpuscular Hemoglobin 29.4 pg (28.0-32.0); Mean Corpuscular Hgb Conc. 34.4 g/dL (32.0-36.0); Mean Corpuscular Volume 85.3 fL (80.0-100.0); Monocytes # (auto) 0.7 10 ^3/uL (0-1.3); Monocytes % (auto) 9.6 % (0.0-12.0); Neutrophils # (auto) 3.3 10 ^3/uL (1.6-8.6); Neutrophils % (auto) 44.2 % (37.0-80.0); Nucleated Red Blood Cells % 0.2 %; Platelet Count (auto) 169 10^3/uL (140-450); Red Blood Cells 4.98 10^6/uL (4.5-5.90); Red Cell Distribution Width 14.4 % (11.8-14.3); White Blood Cell 7.4 10^3/uL (4.4-10.8)
[2024-09-16] MEDS ORDERED: AMPICILLIN & SULBACTAM SODIUM 3 GM in SODIUM CHL 0.9% 100 ML IV ONE (00:15)
[2024-09-16 00:24] LABS: Alanine Aminotransferase 22 U/L (7-40); Albumin 4.7 g/dL (3.2-4.8); Alkaline Phosphatase 74 U/L (46-116); Anion Gap 9 (5-15); Aspartate Aminotransferase 21 U/L (13-40); BUN/Creatinine Ratio 14.4 (10.0-20.0); Blood Urea Nitrogen 15 mg/dL (9-23); Calcium 9.8 mg/dL (8.7-10.4); Carbon Dioxide 24 mmol/L (20-31); Potassium 3.8 mmol/L (3.5-5.1); Sodium 141 mmol/L (136-145); Total Protein 7.2 g/dL (5.7-8.2)
[2024-09-16 00:26] LABS: Bilirubin, Total 0.3 mg/dL (0.2-1.0); Chloride 108 mmol/L (98-107); Glucose 112 mg/dL (74-106)
[2024-09-16] MEDS ORDERED: POTA-36 PO (00:53)
[2024-09-16] MEDS ORDERED: FURO1TAB33 PO (00:53)
[2024-09-16 01:03] VITALS: BP 140/88; PULSE 90; RESP 20; TEMP 99; O2SAT 97
== END 2024-09-16 01:24 | disposition home or self-care (01) ==
LOC: EDBD 20:41 → ER 20:41
DX: R60.0 Localized edema (principal); F17.210 Nicotine dependence, cigarettes, uncomplicated; J45.909 Unspecified asthma, uncomplicated; F20.9 Schizophrenia, unspecified; Z79.899 Other long term (current) drug therapy
CPT/HCPCS: 36415; 80053; 83880; 85025